=== PATIENT | male | born 1955 | race Caucasian/White ===

== ENCOUNTER 2020-09-16 09:25 | Emergency (ER) | payer OTHER ==
--- NOTE | 2020-09-16 10:48 | ER Document Report ---
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 No weakness but is having trouble walking secondary to pain. No history of shingles but does have history of back problems. Never had surgery. No loss of bowel or bladder function, no fever no injection drug use and no saddle anesthesia. - Related Data Allergies/Adverse Reactions: Sulfa (Sulfonamide Antibiotics) Allergy (Verified 09/16/20 09:36) Past Medical History - General Information source: Patient - Social History Smoking Status: Former Smoker Chew tobacco use (# tins/day): No Frequency of alcohol use: Occasional Drug Abuse: None Family History: None Patient has homicidal ideation: No Review of Systems - Review of Systems Notes: REVIEW OF SYSTEMS GEN: Denies fever, chills, weight loss ENT: Denies sore throat, nasal discharge, ear pain EYES: Denies blurry vision, eye pain, discharge CV: Denies chest pain, palpitations, edema RESP: Denies cough, shortness of breath, wheezing GI: Denies abdominal pain, nausea, vomiting, diarrhea MSK: Pain leg pain SKIN: Denies rash, skin lesions LYMPH: Denies swollen glands/lymph nodes NEURO: Perceived tingling of entire left leg PSYCH: Denies depression, suicidal or homicidal ideation PHYSICAL EXAMINATION General: No acute distress, well-nourished Head: Atraumatic, normocephalic ENT: Mouth normal, oropharynx moist, no exudates or tonsillar enlargement Eyes: Conjunctiva normal, pupils equal, lids normal Neck: No JVD, supple, no guarding CVS: Normal rate, regular rhythm, no murmurs Resp: No resp distress, equal and normal breath sounds bilaterally GI: Nondistended, soft, no tenderness to palpation, no rebound or guarding Ext: No deformities, no edema, normal range of motion in upper and lower ext Back: No CVA or midline TTP Skin: No rash, warm Lymphatic: No lymphadeopathy noted Neuro: Awake, alert. Face symmetric. GCS 15. He decree sensation to light touch on the lateral calf only. 5 out of 5 ankle plantar dorsiflexion normal heel and patella reflex. Normal strength throughout with breakaway weakness. Physical Exam - Vital signs Vitals: Temp 98.2 F 09/16/20 09:37 Course - Re-evaluation Re-evalutation: 09/16/20 12:54 Acute back pain with radial apathy likely acute disc herniation without cauda equina No evidence for need for imaging today Pain is severe but the patient is able to be mobile. Will start short course of oxycodone, Lidoderm and steroid taper, patient lives in [place] is driving back next week and wants to follow-up there Given precautions for cauda equina I have discussed with the patient there likely diagnosis, aftercare plan, follow-up plans and my usual and customary return precautions. They verbalized understanding of this. - Vital Signs Vital signs: Temp Pulse Resp BP Pulse Ox 98.2 F 09/16/20 09:37 Discharge - Discharge Clinical Impression: Left sided sciatica Condition: Good Disposition: HOME, SELF-CARE Instructions: Low Back Pain ([facility]), Sciatica ([facility]) Additional Instructions: As we discussed your pain could be due to herniated disc and although you do not need an MRI today, if you develop weakness in the ankle inability to walk foot drop worsening numbness you will need to return to the ER. Prescriptions: Oxycodone HCl [Oxy-Ir 5 mg Tablet] 5 mg PO Q4HP PRN #13 tab PRN Reason: Prednisone [Deltasone 20 mg Tablet] 40 mg PO DAILY #30 tablet Lidocaine [Lidoderm 5% (700 mg) Transdermal Patch] 1 patch TP DAILY #7 adh..patch
== END 2020-09-16 11:10 | disposition home or self-care (01) ==
LOC: ER 09:25
DX: M54.32 Sciatica, left side (principal); M54.9 Dorsalgia, unspecified; X50.0XXA Overexertion from strenuous movement or load, initial encounter; Z87.891 Personal history of nicotine dependence; Z88.2 Allergy status to sulfonamides
CPT/HCPCS: 99284